=== PATIENT | female | born 1950 | race Two or more races ===

== ENCOUNTER 2018-09-25 10:24 | Outpatient (CLI) | payer MEDICARE, OTHER ==
[2018-09-25 18:52] LABS: CANDIDA GROUP DNA NEGATIVE (NEGATIVE); CANDIDA KRUSEI DNA NEGATIVE (NEGATIVE); TRICHOMONAS VAGINALIS DNA NEGATIVE (NEGATIVE)
== END 2018-09-25 23:59 | disposition home or self-care (01) ==
LOC: LAB.R 10:24
PROVIDERS: ATTEND Obstetrics & Gynecology
DX: N89.8 Other specified noninflammatory disorders of vagina (principal); R10.2 Pelvic and perineal pain
CPT/HCPCS: 87661; 87801

== ENCOUNTER 2018-09-25 16:29 | Outpatient (CLI) | payer MEDICARE, OTHER ==
[2018-09-25] MEDS ORDERED: IOVERSOL 320 50 ML VIAL ONE (16:47)
[2018-09-25] MEDS ORDERED: IOVERSOL 320 100 ML VIAL IVP ONE ×2 (16:47→18:07)
[2018-09-25 17:01] LABS: CALCIUM 9.3 mg/dL (8.5-10.3); CREATININE 0.7 mg/dL (0.4-1.0)
[2018-09-25] MEDS ORDERED: IOVERSOL 320 50 ML VIAL PO ONE (18:07)
--- NOTE | 2018-09-25 18:32 | CT Report ---
Reason: ABDOMINAL DISTENSION,ABDOMINAL PAIN,DIVERTICULITIS Procedure Date: 09/25/2018 Accession Number: [id number] / [id number] Procedure: CT - Abdomen/Pelvis W CPT Code: FULL RESULT: EXAM: CT ABDOMEN AND PELVIS EXAM DATE: 09/25/2018 06:05 PM. CLINICAL HISTORY: ABDOMINAL DISTENSION,ABDOMINAL PAIN,DIVERTICULITIS. COMPARISONS: None. TECHNIQUE: Routine helical CT imaging was performed through the abdomen and pelvis. IV contrast: OPTI 320 100ML. Enteric contrast: Yes. Reconstructions: Coronal and sagittal. In accordance with CT protocol optimization, one or more of the following dose reduction techniques were utilized for this exam: automated exposure control, adjustment of mA and/or KV based on patient size, or use of iterative reconstructive technique. FINDINGS: ABDOMEN: Lung Bases: Incompletely included lower lungs are grossly clear. Heart size is within normal limits. No basilar effusions. Liver: Unremarkable. Spleen: Unremarkable. Pancreas: Unremarkable. Gallbladder/Bile Ducts: Gallbladder is decompressed. Biliary tree is normal caliber. Adrenal Glands: Unremarkable. Kidneys: No mass, calculi, or hydronephrosis. Peritoneum/Mesentery/Bowel: No free fluid, free air, or collection. No intestinal obstruction or inflammation. Colonic diverticulosis, worse in the sigmoid. Enteric contrast has reached the right colon. The appendix is within normal limits. Lymph nodes: No mesenteric, periportal, or retroperitoneal lymphadenopathy. Vasculature: Abdominal aorta is nonaneurysmal. Portal vein is patent. Hepatic veins are patent. PELVIS: The bladder is unremarkable for the degree of distention. Uterus is absent. No pelvic lymphadenopathy. Bones: No suspicious osseous lesions. IMPRESSION: No acute abnormalities. Colonic diverticulosis without evidence for diverticulitis. [facility] The call report notification system was initiated by Dr. Maldonado Bennett at 06:30 PM on 09/25/2018.
== END 2018-09-25 16:30 | disposition home or self-care (01) ==
LOC: DI 16:29
PROVIDERS: ATTEND Obstetrics & Gynecology
DX: N89.8 Other specified noninflammatory disorders of vagina (principal); R14.0 Abdominal distension (gaseous); K57.92 Diverticulitis of intestine, part unspecified, without perforation or abscess without bleeding; R10.2 Pelvic and perineal pain
CPT/HCPCS: 36415; 74177; 80048; 87481; 87661; 87801; Q9967

== ENCOUNTER 2019-05-21 13:27 | Outpatient (CLI) | payer MEDICARE, OTHER | END 2019-05-21 13:28 | disposition home or self-care (01) | LOC: COV 13:27 | PROVIDERS: ATTEND Family Medicine | DX: R05 Cough (principal); R50.9 Fever, unspecified | CPT/HCPCS: 81599 ==

== ENCOUNTER 2019-06-06 16:04 | Emergency (ER) | payer MEDICARE, OTHER ==
[2019-06-06] MEDS ORDERED: SODIUM CHLORIDE 0.9% 1,000 ML IV ONE (16:37)
[2019-06-06] MEDS ORDERED: METOCLOPRAMIDE 10 MG/2 ML VIAL IVP STA (16:37)
[2019-06-06] MEDS ORDERED: HYDROmorphone 1 MG/ML SYRINGE IVP STA (16:37)
--- NOTE | 2019-06-06 16:40 | ED Physician Documentation ---
History of Present Illness - Stated complaint Stated Complaint: CHILLS,SOA - Chief complaint Chief Complaint: General PD PAST MEDICAL HISTORY - Past Medical History Past Medical History: Yes Cardiovascular: Hypertension Endocrine/Autoimmune: HyPOthyroidism - Past Surgical History Past Surgical History: No - Allergies Allergies/Adverse Reactions: Allergies Allergy/AdvReac Type Severity Reaction Status Date / Time Sulfa (Sulfonamide Allergy Rash Verified 06/06/19 16:15 Antibiotics) - Social History Does the pt smoke?: No Smoking Status: Never smoker Results - Vitals Vitals: Vital Signs - 24 hr 06/06/19 06/06/19 16:10 16:21 Temperature 36.7 C Heart Rate 111 H 84 Respiratory 16 20 Rate Blood Pressure 136/68 H 133/88 H O2 Saturation 98 100 Oxygen O2 Source Room air - Labs Labs: Laboratory Tests 06/06/19 06/06/19 16:59 16:59 WBC 9.9 RBC 4.85 Hgb 15.1 Hct 43.5 MCV 89.7 MCH 31.1 H MCHC 34.7 RDW 13.3 Plt Count 297 MPV 9.3 Neut # (Auto) 5.6 Lymph # (Auto) 2.4 [place] # (Auto) 1.3 H Eos # (Auto) 0.3 Baso # (Auto) 0.1 Absolute Nucleated RBC 0.00 Nucleated RBC % 0.0 Sodium 135 Potassium 3.4 L Chloride 105 Carbon Dioxide 23 Anion Gap 7.0 BUN 14 Creatinine 0.7 Estimated GFR (MDRD) 83 L Glucose 115 H Calcium 8.7 Total Bilirubin 0.9 AST 21 ALT 24 Alkaline Phosphatase 78 Total Protein 7.3 Albumin 4.2 Globulin 3.1 Albumin/Globulin Ratio 1.4 Lipase 26 Departure - Departure Disposition: 01 Home, Self Care Clinical Impression: Generalized muscle ache, Viral syndrome, Migraine aura, persistent, intractable Condition: Good Instructions: ED Viral Syndrome Comments: You presented with multiple symptoms that are likely 2/2 to a viral syndrome. We have repeated the Covid testing and you must stay home and self isolate until symptoms return. I do think this is less likely to be positive, as you have a migraine and additional symptoms that do not fit with a Covid diagnosis. In any case, the treatment at this point is the same which is rest, oral fluids, prn analgesia. You should return if you develop shortness of breath or otherwise worsening symptoms. If your headache recurs and is more severe than your typical headaches or accompanied by vision changes, confusion, weakness, or other neurologic changes, return to the ER.
[2019-06-06 17:19] LABS: BASOPHILS # (AUTO) 0.1 10^3/uL (0.0-0.1); BASOPHILS % (AUTO) 1.3 %; EOSINOPHILS # (AUTO) 0.3 10^3/uL (0.0-0.7); EOSINOPHILS % (AUTO) 3.4 %; HGB - HEMOGLOBIN 15.1 g/dL (12.0-16.0); LYMPHOCYTES # (AUTO) 2.4 10^3/uL (1.5-3.5); LYMPHOCYTES % (AUTO) 24.5 %; MEAN CORPUSCULAR HEMOGLOBIN 31.1 pg (27.0-31.0); MEAN CORPUSCULAR HGB CONC 34.7 g/dL (32.0-36.0); MEAN CORPUSCULAR VOLUME 89.7 fL (81.0-99.0); MEAN PLATELET VOLUME 9.3 fL (7.9-10.8); MONOCYTES # (AUTO) 1.3 10^3/uL (0.0-1.0); MONOCYTES % (AUTO) 13.3 %; NEUTROPHILS # (AUTO) 5.6 10^3/uL (1.5-6.6); NEUTROPHILS % (AUTO) 56.8 %; PLT - PLATELET COUNT 297 10^3/uL (130-450); RED BLOOD COUNT 4.85 10^6/uL (4.20-5.40); RED CELL DISTRIBUTION WIDTH 13.3 % (12.0-15.0); WHITE BLOOD COUNT 9.9 x10^3/uL (4.8-10.8)
[2019-06-06 17:28] LABS: ALBUMIN 4.2 g/dL (3.2-5.5); ALBUMIN/GLOBULIN RATIO 1.4 (1.0-2.2); BILIRUBIN,TOTAL 0.9 mg/dL (0.2-1.0); CALCIUM 8.7 mg/dL (8.5-10.3); CREATININE 0.7 mg/dL (0.4-1.0); TOTAL PROTEIN 7.3 g/dL (6.7-8.2)
[2019-06-06 18:19] VITALS: BP 123/68
== END 2019-06-06 18:25 | disposition home or self-care (01) ==
LOC: ED 16:04
DX: B34.9 Viral infection, unspecified (principal); M79.10 Myalgia, unspecified site; G43.519 Persistent migraine aura without cerebral infarction, intractable, without status migrainosus
CPT/HCPCS: 36415; 80053; 83690; 85025; 96361; 96374; 99283; 99284; J1170; J2765; U0002; 81599